=== PATIENT | female | born 1950 | race Caucasian/White ===

== ENCOUNTER → 2016-11-09 | Outpatient (CLI) | payer MEDICARE, MEDICAID ==
[~2016-11-09] MED LIST: ALLERCLEAR10 MG PO; AUGMENTIN 875 M1 TAB PO; BISOPROLOL 5MG T5 MG PO; CEFDINIR 300MG300 MG PO; CITALOPRAM20 MG PO; CLOPIDOGREL75 M1 PO; COMBIVENT INH14.7 GM IN; COMMIT MM; DIAZEPAM5 MG PO; FUROSEMIDE40 MG PO; HYDROCHLOROTHIA25 M1 PO; HYDROXYZINE HCL25 MG PO; LEVAQUIN500 MG PO; LIPITOR10 MG PO; MEDROL 4MG. DOSE4 MG PO; METFORMIN 500M500 M1 PO; METFORMIN ER500 MG PO; METOLAZONE 2.52.5 MG PO; NITROSTAT0.4 MG SL; OMNICEF 300 MG300 MG PO; PIROXICAM PO; POTASSIUM CHLO20 ME2 PO; PREDNISONE 10MG10 MG PO; PREDNISONE 20MG20 MG PO; RISPERDAL 0.50.5 MG PO; SPIRIVA HA1 PUFF/INH IH; TYLENOL W/CODEI1 TA2 PO; ZITHROMAX Z-PA250 M1 PO; ZITHROMAX Z-PA250 M2 PO
--- NOTE | 2016-11-09 19:22 | RADIOLOGY REPORT PS360 ---
RIBS-BILATERAL, CHEST(2 VIEWS-NOT PORTABLE) ORDERING PHYSICIAN : Abrahan Estrada MD PATIENT AGE: 66 years GENDER: Female INDICATION: CHEST WALL PAIN Fell with pain below left breast. ---BILATERAL RIBS TECHNIQUE: Oblique right and left rib . No below diaphragm images included COMPARISON: Chest x-ray PA and lateral from today as well as 11/01/2015 FINDINGS Diffuse demineralization limits detail and resolution on ribs as well as limited single oblique to the right and left. No good evidence of fracture at ribs on these images. Slight undulation anterior right fourth rib most likely normal. No pneumothorax. No pleural effusion. ...IMPRESSION. ............. 1. Bilateral Ribs intact. No fracture nor lesion evident. Ribs not well seen due to Demineralization. CHEST(2 VIEWS-NOT PORTABLE) COMPARISON two-view chest 11/01/2015 and April 2014 HISTORY. Fell with pain below left breast. Chest wall pain bilateral. Procedure:. PA and lateral chest. Findings. Infiltrate posterior aspect right apex. Has developed since prior 2016 exam. With a infiltrate in this region to be cautious you may want to place a PPD & check sputum for AFB, although unlikely. The remainder the chest appears stable. Underlying COPD Chronic changes at mid and lower lung holm bilaterally . Heart upper normal size. Essence and mediastinal structures satisfactory. Blunting of posterior sulcus on lateral view. ...IMPRESSION...... 1....Minimal ill-defined infiltrate, posterior RUL . This infiltrate superimposed upon emphysematous changes here posterior apical segment RUL. Note additional comments in text
== END ==
LOC: RAD 13:08
DX: R07.89 Other chest pain (principal)

== ENCOUNTER → 2016-12-17 | Outpatient (CLI) | payer MEDICARE, MEDICAID ==
[2016-12-17 13:23] LABS: HEMOGLOBIN 17.7 g/dL (12.2-16.2)
[2016-12-17 14:02] LABS: BUN 16 mg/dL (7-18); GFR (ESTIMATED) 72 ML/MIN (59-)
== END ==
LOC: LAB 12:33
PROVIDERS: Internal Medicine Adolescent Medicine
DX: E78.5 Hyperlipidemia, unspecified (principal); E11.9 Type 2 diabetes mellitus without complications; L03.115 Cellulitis of right lower limb

== ENCOUNTER → 2017-03-13 | Outpatient (CLI) | payer MEDICARE, MEDICAID ==
[2017-03-13 16:27] LABS: BUN 12 mg/dL (7-18)
[2017-03-13 16:37] LABS: GFR (ESTIMATED) 84 ML/MIN (59-)
== END ==
LOC: LAB 11:38
PROVIDERS: Internal Medicine Adolescent Medicine
DX: E78.5 Hyperlipidemia, unspecified (principal); E11.9 Type 2 diabetes mellitus without complications

== ENCOUNTER → 2017-06-27 | Outpatient (CLI) | payer MEDICARE ==
[~2017-06-27] MED LIST changes: +KEFLEX 500MG.500 MG PO
--- NOTE | 2017-06-27 15:45 | RADIOLOGY REPORT PS360 ---
EXAM: LUMBAR SPINE 5 VIEWS HISTORY: Acute midlung low back pain ORDERING PHYSICIAN: ADRI SINGH APRN PATIENT AGE: 66 years COMPARISON: None FINDINGS: Normal alignment. No fracture or dislocation. No lytic or blastic change. No significant degenerative change. The disc spaces are preserved. Incidental aortic calcification noted IMPRESSION: Negative lumbar spine
--- NOTE | 2017-06-27 15:51 | RADIOLOGY REPORT PS360 ---
EXAM: THORACIC SPINE-3V SWIMMERS HISTORY: Acute thoracic back pain COMPARISON: None FINDINGS: There is normal alignment. There is slight decrease in height anteriorly of T3 and T4 probably chronic. Increased density is present in the right upper lobe medially consistent with chronic fibrotic changes. IMPRESSION: 1. No definite acute finding. 2. Chronic parenchymal opacity right upper lobe medially. 3. Slight loss of height anteriorly at T3 and T4 of questionable clinical significance. If there is focal pain in this region then MRI may be of further value to determine if this is acute or chronic
--- NOTE | 2017-06-27 15:57 | RADIOLOGY REPORT PS360 ---
ANKLE-LT-3 VIEWS HISTORY: Left ankle pain CELLULITIS OF LEFT LOWER EXT EXTREMITY ORDERING PHYSICIAN: ADRI SINGH APRN PATIENT AGE: 66 years COMPARISON: None FINDINGS: No fracture or dislocation. No lytic or blastic change. There is normal mineralization.. Well-defined small calcific density is present at the tip of the medial malleolus consistent with an old injury. No radio opaque foreign body or soft tissue gas. IMPRESSION: Old avulsion fracture of of the medial malleolus otherwise negative
--- NOTE | 2017-06-27 15:58 | RADIOLOGY REPORT PS360 ---
FOOT-LT-3 VIEWS HISTORY: Left foot pain CELLULITIS OF LEFT LOWER EXT EXTREMITY ORDERING PHYSICIAN: ADRI SINGH APRN PATIENT AGE: 66 years COMPARISON: None FINDINGS: No fracture or dislocation. No lytic or blastic change. There is normal mineralization.. The joint spaces are well-preserved. No significant degenerative/arthritic changes. No erosive changes evident. IMPRESSION: Negative left foot, no acute finding
--- NOTE | 2017-06-27 15:58 | RADIOLOGY REPORT PS360 ---
LOWER LEG-LT HISTORY: Left lower extremity pain CELLULITIS OF LEFT LOWER EXT EXTREMITY ORDERING PHYSICIAN: ADRI SINGH APRN PATIENT AGE: 66 years COMPARISON: None FINDINGS: No fracture or dislocation. No lytic or blastic change. There is normal mineralization. The joint spaces are well-preserved. No significant degenerative/arthritic changes. No erosive changes evident. IMPRESSION: Negative left tib-fib, no acute finding
== END ==
LOC: RAD 14:43
DX: L03.116 Cellulitis of left lower limb (principal); M54.6 Pain in thoracic spine; M54.5 Low back pain